=== PATIENT | male | born 1945 | race Caucasian/White ===

== ENCOUNTER 2020-02-26 08:51 | Outpatient (CLI) | payer MEDICARE, OTHER, SELFPAY ==
--- NOTE | ~2020-02-26 | US_ITS ---
EXAMINATION: US soft tissue chest DATE: 02/26/2020 09:12 INDICATION: Left axillary lump. Lymphoma. TECHNIQUE: Multiple grayscale and Doppler ultrasound images of the left axilla were obtained. COMPARISON: None FINDINGS: In the patient's area of concern in left axilla, there is a 5.0 x 1.8 x 1.8 cm lymph node. IMPRESSION: 1. Enlarged left axillary lymph node, consistent with lymphoma. Reviewed, dictated and finalized at location A.
== END 2020-02-26 08:52 | disposition home or self-care (01) ==
PROVIDERS: PCP Family Medicine; Visit Provider Family Medicine
DX: M79.89 Other specified soft tissue disorders (principal)
CPT/HCPCS: 76604

== ENCOUNTER 2020-03-02 11:58 | Outpatient (CLI) | payer MEDICARE, OTHER, SELFPAY ==
--- NOTE | ~2020-03-02 | US_ITS ---
EXAMINATION: US scrotum doppler DATE: 03/02/2020 12:42 INDICATION: Bilateral testicular pain. TECHNIQUE: Grayscale and Doppler ultrasound images of the testes were obtained. COMPARISON: Ultrasound 09/12/2018, CT abdomen and pelvis 07/23/2018 FINDINGS: The right testis measures 3.8 x 2.3 x 3.4 cm. The left testis measures 3.8 x 2.3 x 2.9 cm. There is a 3 mm tunica albuginea cyst on the left. There is normal vascular flow to both testes. The right epididymis is normal with normal vascular flow. The left epididymis is normal with normal vascu lar flow. There are small bilateral hydroceles. There are bilateral varicoceles. IMPRESSION: 1. Small bilateral hydroceles. 2. Bilateral varicoceles. Reviewed, dictated and finalized at location A.
== END 2020-03-02 11:59 | disposition home or self-care (01) ==
LOC: CHSIMG 12:01
PROVIDERS: PCP Family Medicine; Visit Provider Nurse Practitioner Family
DX: N50.819 Testicular pain, unspecified (principal)
CPT/HCPCS: 76870; 93976

== ENCOUNTER 2020-03-10 07:39 | Emergency (ER) | payer MEDICARE, OTHER, SELFPAY ==
--- NOTE | ~2020-03-10 | CT_ITS ---
EXAMINATION: CT abdomen pelvis wo con DATE: 03/10/2020 09:08 INDICATION: Lymphoma. Right flank pain. Low back pain. Nausea. TECHNIQUE: Computed tomography (CT) of the abdomen and pelvis was performed without intravenous contr ast. The dose-length product was 292.19 mGy-cm. Automated exposure control and iterative reconstructi on technique were employed. COMPARISON: CT dated 07/23/2018 FINDINGS: Left lower lobe atelectasis/scarring. Heart size normal. Moderate size hiatal hernia. No si gnificant pleural or pericardial effusion. Small fat-containing left inguinal hernia. Nonobstructive bowel gas pattern. There is retrocrural, retroperitoneal, periportal and pelvic lymphadenopathy, consistent with patient 's known lymphoma. No renal stones identified. No hydronephrosis. No ureteral stones. Status post cholecystectomy. The liver, spleen, pancreas, adrenal glands and kidneys are unremarkable . Enlarged prostate gland. Colonic diverticulosis without evidence for diverticulitis. Moderate lumba r spondylosis. Stable sclerotic lesion left ilium, likely a bone island. IMPRESSION: 1. No significant change to extensive abdominal and pelvic lymphadenopathy, consistent with patient's known non-Hodgkin's lymphoma. 2: Moderate hiatal hernia. Small fat-containing left inguinal hernia. Reviewed, dictated and finalized at location A. IMPRESSION: 1. No significant change to extensive abdominal and pelvic lymphadenopathy, con sistent with patient's known non-Hodgkin's lymphoma. 2: Moderate hiatal hernia. Small fat-containing left inguinal hernia.
[2020-03-10 07:54] VITALS: BP 123/78; PULSE 60; RESP 18; TEMP 36.8; O2SAT 97
[2020-03-10 08:15] LABS: Appearance Urine Clear (Clear); Bilirubin Urine Negative (Negative); Color Urine Yellow (Yellow); Glucose Urine UA Negative (Negative); Ketones Urine Negative (Negative); Leukocyte Esterase Ur Negative LEU/UL (Negative); Nitrate Urine Negative (Negative); Protein Urine Trace (Negative); Specific Grav Ur 1.015 (1.010-1.020); Urobilinogen Urine 0.2 mg/dL (0.2-1.0)
[2020-03-10 08:25] LABS: Add Urine Microscopic? YES; Blood Urine Trace-Intact (Negative); WBC Urine 0-3 /hpf (0-3)
[2020-03-10 08:26] LABS: Bacteria Urine 1+ /hpf; Mucus Urine Few /lpf; Squamous Epithelial Cell Urine None seen /hpf (Few)
--- NOTE | 2020-03-10 08:26 | PC.NURSE ---
pt took tramadol at 6am today
--- NOTE | 2020-03-10 08:41 | ED.BACK ---
HPI - Back Pain/Injury General Chief Complaint: Urogenital-Male Stated Complaint: LOWER BACK PAIN Source: patient Mode of arrival: ambulatory Limitations: no limitations History of Present Illness HPI Narrative: Remained is a 74-year-old with a past medical history of hypertension, CVA, non-Hodgkin's lymphoma which has been in remission. He complains of right flank pain onset 1 week ago much worse in the last 3 days. Onset was associated with carrying boxes up downstairs. He has trouble getting comfortable at night so has been sleeping in a chair. Otherwise nothing makes it worse or better. He rates the pain as a 8 currently. The pain does not radiate into his lower extrermities. There is no numbness or weakness of the lower extremities. Thermacare patch was applied to the right flank. He injured the skin when removing it. He's also tried Tramadol with some relief. Also for the last week he has had scrotal aching involving both testicles. [facility]. Scrotal ultrasound was negative, flank pain was thought to be musculoskeletal. About 2 weeks ago awaiting noticed a mass into his left arm. He has been seen by his oncologist, Dr. Aguiar, in [place]. Upcoming biopsy is scheduled. He has been taking venotoclax for 2 years and ibrutinib for 4 years/ Similar Symptoms Previously: No Quality: dull Treatments prior to arrival: other Related Data Home Medications Medication Instructions Recorded Confirmed allopurinol 100 mg tablet 100 mg PO DAILY 11/13/19 03/10/20 amlodipine 5 mg tablet 5 mg PO DAILY 11/13/19 03/10/20 aspirin 81 mg tablet,delayed 81 mg PO DAILY 11/13/19 03/10/20 release ibrutinib 420 mg tablet 420 mg PO DAILY 11/13/19 03/10/20 montelukast 10 mg tablet 10 mg PO DAILY 11/13/19 03/10/20 tramadol 50 mg tablet 50 mg PO Q6H PRN 11/13/19 03/10/20 venetoclax 100 mg tablet 400 mg PO DAILY tablet 11/13/19 03/10/20 Allergies Allergy/AdvReac Type Severity Reaction Status Date / Time ciprofloxacin Allergy Unknown Unknown Verified 03/02/20 10:40 Review of Systems Constitutional: Constitutional: Denies chills and Denies fever(s) Comments: no unusual weight variations ENT: Denies dysphagia, Reports mouth lesions (canker sore left side of tongue), Reports nasal congestion and Denies sore throat Cardiovascular: Cardiovascular: Denies chest pain Respiratory: Respiratory: Denies cough and Denies dyspnea Gastrointestinal: Gastrointestinal: Denies abdominal pain, Reports diarrhea (chronic), Denies nausea and Denies vomiting Genitourinary: Genitourinary: Denies hematuria, Denies dysuria and Denies urinary frequency Integumentary/Breasts: Comments: rash right flank from Thermacare patch. Neurologic: Denies focal weakness and Denies numbness Endocrine: Endocrine: Denies polyuria [facility] Social History Social History Smoking status: Former smoker Alcohol intake: current Additional living arrangements comments: No Children Exam Const: General: no acute distress Other: N.A.D. Gets up from supine to sitting to standing with ease/without splinting. Moves from [place] to chair without apparent pain. HENMT: Face and sinus: other Mouth: Yes moist mucous membranes and Yes other (no ulcers on mucosa or tongue) Neck: Neck: normal visual inspection, full ROM and no lymphadenopathy Lymphatic: no lymphadenopathy noted Chest: Chest palpation & inspection: normal inspection of the chest Breast/axilla inspection: abnormal inspection of the axilla (10 cm subcutaneous axillary mass. Nontender. ) Resp: Effort & Inspection: normal respiratory effort Auscultation: clear to auscultation bilaterally Cardio: Rate: regular rate Rhythm: regular rhythm Heart sounds: no murmurs GI: Inspection: normal to inspection GI Palp: No abdominal tenderness, No No hepatosplenomegaly present and No Palpable mass present Auscultation: Hypoactive b
[2020-03-10 09:22] LABS: Hematocrit 35.3 % (37.0-46.0); Mean Corpuscular Hemoglobin 30.9 pg (27.0-31.0); Mean Platelet Volume 9.8 fl (8.7-11.0); Platelet Count Result 135 K/mm3 (150-420); Red Blood Count 3.88 M/mm3 (4.70-6.10); Red Cell Distribution Width 13.9 % (11.6-14.4); White Blood Count 4.2 K/mm3 (4.8-10.8)
[2020-03-10 09:33] LABS: Alanine Aminotransferase 22 U/L (16-63); Albumin Level 3.6 g/dL (3.4-5.0); Alkaline Phosphatase 151 U/L (46-116); Anion Gap 8.7 mmol/L (7-16); Aspartate Amino Transferase 21 U/L (15-37); Bilirubin,Total 0.7 mg/dL (0.00-1.00); Blood Urea Nitrogen 13 mg/dL (7-18); Calcium 8.6 mg/dL (8.5-10.1); Carbon Dioxide 32 mmol/L (21-32); Chloride 105 mmol/L (98-108); Estimated CRCL calculation 45 ml/min; Estimated Glomerular Filt Rate > 60; Glucose 118 mg/dL (70-99); Osmolality Calculated 295 mOsm/kg (285-295); Potassium 3.7 mmol/L (3.5-5.1); Sodium 142 mmol/L (136-145); Total Protein 6.1 g/dL (6.4-8.2)
[2020-03-10 09:50] VITALS: BP 125/72; PULSE 67; RESP 20; TEMP 36.6; O2SAT 97
== END 2020-03-10 09:51 | disposition home or self-care (01) ==
PROVIDERS: Emergency Provider Family Medicine; PCP Family Medicine
DX: S39.012A Strain of muscle, fascia and tendon of lower back, initial encounter (principal); Z87.891 Personal history of nicotine dependence; X50.9XXA Other and unspecified overexertion or strenuous movements or postures, initial encounter
CPT/HCPCS: 36415; 74176; 80053; 81001; 85027; 99283; 99284

== ENCOUNTER 2020-03-15 10:46 | Emergency (ER) | payer MEDICARE, OTHER, SELFPAY ==
--- NOTE | 2020-03-15 11:05 | ED.BACK ---
HPI - Back Pain/Injury General Chief Complaint: Back Pain/Injury Stated Complaint: Right side pain Source: patient and RN notes reviewed Mode of arrival: ambulatory Limitations: no limitations History of Present Illness HPI Narrative: Patient is here with pain in the right back for a week . Has seen his PMD and was started on a muscle relaxant which the patient has not taken yet . Denies any injury . MD elicited complaint: back pain and back injury (none) Pertinent past history: prior back pain Timing: constant Severity: moderate Similar Symptoms Previously: Yes Quality: dull and aching Location: lumbar spine Radiation: none Exacerbating factors: movement Relieving factors: none Associated symptoms: denies other symptoms Treatments prior to arrival: heat therapy, NSAIDS, other medications (tramadol) and prescription analgesics Related Data Home Medications Medication Instructions Recorded Confirmed allopurinol 100 mg tablet 100 mg PO DAILY 11/13/19 03/15/20 amlodipine 5 mg tablet 5 mg PO DAILY 11/13/19 03/15/20 aspirin 81 mg tablet,delayed 81 mg PO DAILY 11/13/19 03/15/20 release ibrutinib 420 mg tablet 420 mg PO DAILY 11/13/19 03/15/20 montelukast 10 mg tablet 10 mg PO DAILY 11/13/19 03/15/20 tramadol 50 mg tablet 50 mg PO Q6H PRN 11/13/19 03/15/20 venetoclax 100 mg tablet 400 mg PO DAILY tablet 11/13/19 03/15/20 Allergies Allergy/AdvReac Type Severity Reaction Status Date / Time ciprofloxacin Allergy Unknown Unknown Verified 03/02/20 10:40 Review of Systems Review of Systems: All systems reviewed & are unremarkable except as noted in HPI and below Musculoskeletal: Musculoskeletal: Reports no additional musculoskeletal complaints Psychiatric: Psychiatric: Reports anxiety PMFSH Past Medical History Medical History Allergic rhinitis Chronic back pain GERD (gastroesophageal reflux disease) Gout History of CVA (cerebrovascular accident) Hyperlipidemia Hypertension Left inguinal hernia Non Hodgkin's lymphoma Dx'd in 2017 Surgical History Surgical History History of cholecystectomy 2016 Family History Family History Mother CHF (congestive heart failure) Father , Carbon Monoxide Poisoining No problems noted. Other Diabetes mellitus Family history of congestive heart failure Family history of coronary artery disease Family history of malignant neoplasm Hypertension Social History Social History Smoking status: Former smoker Alcohol intake: current Additional living arrangements comments: No Children Exam Const: General: no acute distress and alert Orientation/consciousness: patient oriented x3 HENMT: Head: normal to inspection Chest: Chest palpation & inspection: normal inspection of the chest Resp: Effort & Inspection: normal respiratory effort Auscultation: clear to auscultation bilaterally Cardio: Rate: regular rate Rhythm: regular rhythm GI: GI Palp: No abdominal tenderness, Yes Soft to palpation, No Tenderness to palpation present (GI) and No Guarding due to palpation present (GI) Auscultation: normal bowel sounds Back/Spine/Pelvis: Back: no CVA tenderness Thoracic/Lumbar Spine: paraspinal muscle tenderness (right side) Neuro: General: moves all extremities and no focal motor deficits Extrem: General: normal to inspection Psych: Mental Status: mental status grossly normal Affect: Anxious affect present Course Course Emergency Course: Uneventful. Will give the patient a dose of toradol . Vital Signs Vital signs: Vital Signs Temperature 36.6 C 03/15/20 11:17 Pulse Rate 65 03/15/20 11:17 Respiratory Rate 17 03/15/20 11:17 Blood Pressure 120/74 03/15/20 11:17 Pulse Oximetry 99 03/15/20 11:17 Temperatu
[2020-03-15 11:17] VITALS: BP 120/74; PULSE 65; RESP 17; TEMP 36.6; O2SAT 99
[2020-03-15] MEDS: KETOROLAC (*BKC) 60 MG/2 ML VIAL IM (11:26)
[2020-03-15 11:53] VITALS: RESP 16
== END 2020-03-15 11:53 | disposition home or self-care (01) ==
PROVIDERS: Emergency Provider Emergency Medicine; PCP Family Medicine
DX: M54.9 Dorsalgia, unspecified (principal); Z87.891 Personal history of nicotine dependence
CPT/HCPCS: 96372; 99283; J1885